=== PATIENT | male | born 1965 | race Hispanic/Latino ===

== ENCOUNTER 2020-02-16 11:14 | Emergency (ER) | payer BC, OTHER ==
[2020-02-16 17:22] LABS: SARS-CoV-2 MS2 Positive; SARS-CoV-2 N Gene Positive; SARS-CoV-2 S Gene Positive; SARS-CoV-2 orf1ab Positive
== END 2020-02-16 12:16 | disposition home or self-care (01) ==
LOC: ERS 11:14
DX: U07.1 COVID-19 (principal); E11.9 Type 2 diabetes mellitus without complications; I10 Essential (primary) hypertension; Z79.84 Long term (current) use of oral hypoglycemic drugs
CPT/HCPCS: 87635; 99283; U0003

== ENCOUNTER 2020-02-29 13:56 | Emergency (ER) | payer BC, OTHER | END 2020-02-29 14:21 | disposition home or self-care (01) | LOC: ERS 13:56 | DX: Z20.828 Contact with and (suspected) exposure to other viral communicable diseases (principal) | CPT/HCPCS: 99281 ==